=== PATIENT | female | born 1970 | race Hispanic/Latino ===

== ENCOUNTER 2020-03-11 06:55 | Outpatient (NON) | payer MEDICAID, SELFPAY ==
[2020-03-11 22:34] LABS: SARS-CoV-2 RNA PCR Negative
== END 2020-03-11 06:56 ==
LOC: ANHCOVIDDT 07:03
PROVIDERS: PCP Family Medicine; Visit Provider Nurse Practitioner Adult Health
DX: R68.83 Chills (without fever) (principal); Z20.822 Contact with and (suspected) exposure to COVID-19
CPT/HCPCS: C9803; U0003; U0005

== ENCOUNTER 2023-12-10 16:35 | Emergency (ER) | payer OTHER, SELFPAY ==
[2023-12-10 16:51] VITALS: BP 110/59; PULSE 92; RESP 16; TEMP 37.6; O2SAT 98
--- NOTE | 2023-12-10 18:08 | ED.SKABFB ---
HPI - Skin/Abscess/Foreign Bdy General Chief complaint: Skin/Abscess/Foreign Body Stated complaint: right inner thigh spider bite Time Seen by Provider: 12/10/23 18:08 Source: patient Mode of arrival: ambulatory Limitations: no limitations History of Present Illness HPI narrative: 53 yo F presents with concern for brown recluse bite to R thigh for 2 to 3 days. afebrile. Today pain and redness worse and started to drain. Pt read about brown recluse bites online and she has all the symptoms . All systems reviewed and negative except as noted above. Related Data Home Medications Medication Instructions Recorded Confirmed albuterol sulfate 90 mcg/actuation See Rx Instructions .Route .COMPLEX 12/10/23 12/10/23 aerosol inhaler fluticasone propionate 110 See Rx Instructions .Route .COMPLEX 12/10/23 12/10/23 mcg/actuation HFA aerosol inhaler Allergies Allergy/AdvReac Type Severity Reaction Status Date / Time No Known Allergies Allergy Verified 12/10/23 17:10 Review of Systems Review of Systems: CONSTITUTIONAL: Denies fever, chills, or sweats. EYES: Denies visual changes, redness, or discharge. ENT: Denies rhinorrhea, congestion, sore throat, or otalgia. CARDIOVASCULAR: Denies chest pain, palpitations, or edema. RESPIRATORY: Denies cough or dyspnea. GASTROINTESTINAL: Denies abdominal pain, nausea, vomiting, or diarrhea. GENITOURINARY: Denies dysuria or hematuria. SKIN: Denies rash or itching. Reports brown recluse bite to right upper thigh. MUSCULOSKELETAL: Denies back pain, joint pain, or myalgia. NEUROLOGIC: Denies headache, numbness, or weakness. PSYCHIATRIC: Denies anxiety or depression. All other systems reviewed are negative, except as documented in HPI. [facility] Family History Family History (Updated 01/03/18 @ 09:41 by DOCTOR UNKNOWN) Other Family history of genetic disorder No family history of cardiovascular disease Social History Social History Smoking status: Never smoker Alcohol intake: current Comments At time of signature, agree with nursing past medical, surgical, social and family history. There is no relevant family history pertinent to the presenting complaint. Exam Narrative: GENERAL: This is a well-nourished, well-developed patient, in no apparent distress. HEAD: normocephalic, atraumatic. EYES: PERRL. Sclera clear/white. Vision is grossly intact. EARS: External ears normal NOSE: External nose normal NECK: Neck supple, non-tender without lymphadenopathy, masses or thyromegaly. CARDIOVASCULAR: Regular rate and rhythm without murmurs, gallops, or rubs. RESPIRATORY: Clear to auscultation. Breath sounds equal bilaterally. No wheezes, rales, or rhonchi. SKIN: warm, Dry, intact with no suspicious lesions or rash, good texture and turgor. erythema to anterior aspect R upper thigh approx. 5cm diameter with 1cm area of fluctuance with pururlent drainage. tender on palpation. warm to touch. NEURO: awake, alert, and oriented to person, place and time. There were no obvious focal neurologic abnormalities. EXTREMITIES: No joint tenderness, effusion, or edema noted. Course Course Level of Care: Express Care Visit Vital Signs Vital signs: Vital Signs Temperature 37.6 C 12/10/23 16:51 Pulse Rate 92 12/10/23 16:51 Respiratory Rate 16 12/10/23 16:51 Blood Pressure 110/59 L 12/10/23 16:51 Pulse Oximetry 98 12/10/23 16:51 Oxygen Delivery Room Air 12/10/23 16:51 Temperature 37.6 C 12/10/23 16:51 Pulse Rate 92 12/10/23 16:51 Respiratory Rate 16 12/10/23 16:51 Blood Pressure 110/59 L 12/10/23 16:51 Pulse Oximetry 98 12/10/23 16:51 Oxygen Delivery Room Air 12/10/23 16:51 Reviewed MDM - Skin/Abscess/Foreign Bdy MDM Narrative Medical decision making narrative: Patient is aware of diagnosis, understands and agrees to treatment plan. Anticipatory guidance given. Patient agrees to follow-up as directed and is aware of r
== END 2023-12-10 18:25 | disposition home or self-care (01) ==
PROVIDERS: Emergency Provider Nurse Practitioner Family
DX: S70.361A Insect bite (nonvenomous), right thigh, initial encounter (principal); L08.9 Local infection of the skin and subcutaneous tissue, unspecified; W57.XXXA Bitten or stung by nonvenomous insect and other nonvenomous arthropods, initial encounter; J45.909 Unspecified asthma, uncomplicated
CPT/HCPCS: 99213; G0463